=== PATIENT | female | born 1980 | race Caucasian/White ===

== ENCOUNTER 2025-02-07 07:17 | Day surgery (SDC) | payer OTHER, SELFPAY ==
--- NOTE | 2025-01-30 16:49 | HP.PCM_ITS ---
History and Physical Date of Admission: 02/07/25 HPI: The patient is a 44 year old female presenting for pre-operative visit. She is scheduled for laparoscopic-assisted vaginal hysterectomy with bilateral salpingectomy and possible cystoscopy, for adenomyosis, menorrhagia, intramural uterine fibroid, iron deficiency anemia due to chronic blood loss, on February 07, 2025. Procedure discussed along with risks, benefits and complications. Other alternatives discussed for management. Consent form signed? Yes. ? ? PAST MEDICAL HISTORY PAST MEDICAL HISTORYDiagnosisDate?Ovarian cyst09/09?Not sure..see ct scan ?Uterine [id number]?See ct scan results ? ? PAST SURGICAL HISTORY PAST SURGICAL HISTORYProcedureLateralityDate?D&C, DIAG AND/OR THERAPEUTIC?2004?ESSURE?2009?FOOT SURGERY [id number] ? ? ? CURRENT MEDICATIONS Current Outpatient MedicationsMedicationSigDispenseRefill?ibuprofen (MOTRIN) 600 mg tabletTake 1 tablet by mouth every 6 hours as needed for pain. FOR PAIN.60 tablet1?ferrous sulfate (IRON ORAL)Take by mouth.???No current facility- administered medications for this visit. ? ? ALLERGIES: Hydrocodone-Acetaminophen ? PERSONAL HISTORY: SOCIAL HISTORY Social History?Tobacco Use?Smoking status:Former??Types:Cigarettes?Smokeless tobacco:NeverVaping Use?Vaping status:Never UsedSubstance Use Topics?Alcohol use:Never?Drug use:Never ? FAMILY HISTORY: FAMILY HISTORY FAMILY HISTORY ProblemRelationAge of Onset?CancerMaternal Aunt?? possible kidney cancer ? ? REVIEW OF SYMPTOMS: GENERAL: denies fevers or chills ENDOCRINOLOGY: has not been on steroids Cardiology : denies palpitations or chest pain Respiratory: denies SOB or cough Hematology: denies history of prolonged bleeding or easy bruising or VTE Allergy: Denies history of personal or family history of allergy to anesthesia ? PHYSICAL EXAMINATION: ? VITALS: Blood pressure 118/80, pulse 60, resp. rate 20, height 167.6 cm (5' 6), weight 78.3 kg (172 lb 9.6 oz), last menstrual period 12/16/2024. ? GENERAL: The patient is well nourished, well hydrated in no acute distress. , The patient is oriented to time, place, and person. NECK: Supple. No lynphadenopathy, normal thyroid, no thyromegaly. LUNGS: Clear to auscultation bilaterally. no wheezes, rhonchi or rales HEART: Regular rate and rhythm, Normal heart sounds, and No murmurs or gallops ? Pelvic US 11/16/24: Uterus: -Size: 10.1 x 5.9 x 8.1 cm -Orientation: Anteverted -Endometrial echo complex: Evaluation of the endometrium was adequate. No endometrial abnormality. The endometrial echo complex measured 1.1 cm. -Cervix: Unremarkable. -Adenomyosis assessment: Globular uterine shape, ?heterogeneous parenchymal echogenicity, endometrial-myometrial interface is indistinct, -Fibroids: Right anterior intramural fibroid of 2.4 cm Right Ovary: 2.9 x 1.5 x 1.5 cm Normal appearance Left Ovary: 2.7 x 1.6 x 1.8 cm Normal appearance ? IMPRESSION: AUB/Menorrhagia, intramural uterine fibroid, adenomyosis, fe def anemia of chronic blood loss ? PLAN: The risks/benefits/alternatives and personal involved for the planned LAVH, bilateral salpingectomy, possible cystoscopy were reviewed with the patient. Her questions were answered to her satisfaction and she desires to proceed. Consent was signed. I reviewed with her postop instructions and expectations. ? ? I have reviewed and updated past medical and surgical history, medications and allergies Assessment & Plan Assessment/Plan (1) Intramural uterine fibroid: (2) Menorrhagia: (3) Adenomyosis: (4) Iron deficiency anemia due to chronic blood loss:
[2025-02-07] VITALS (10 sets, daily range): BP systolic 94–119; BP diastolic 60–87; PULSE 60–84; RESP 14–16; TEMP 36.1–37.3; O2SAT 95–100; BMI 27.5
[2025-02-07 08:15] LABS: Internal QC Validated? YES +Cl - CLEAR BKGD; Pregnancy, Urine Negative Negative
[2025-02-07] MEDS: Enoxaparin 40 MG/0.4 ML Syringe SC (08:40)
[2025-02-07] MEDS: Celecoxib 200 MG Capsule 400 MG PO (08:41)
[2025-02-07] MEDS: Phenazopyridine 95 MG Tablet 190 MG PO (08:41)
[2025-02-07] MEDS: Acetaminophen 500 MG Tablet 1000 MG PO (08:41)
[2025-02-07 08:42] LABS: Hematocrit 35.4 % (37-47); Mean Corp Hgb Conc 33.9 g/dL (32-36); Mean Corpuscular Hgb 29.3 pg (27.0-32.0); Mean Corpuscular Volume 86.6 fL (81-99); Platelet Count 269 K/mm3 (150-450); RBC Distribution Width CV 13.2 % (11.6-14.6); RBC Distribution Width SD 41.6 fl (35.1-43.9); Red Blood Count 4.09 M/mm3 (4.2-5.4)
[2025-02-07] MEDS: Scopolamine 1mg/72hr Patch 1 PATCH TD (08:42)
[2025-02-07] MEDS: Gabapentin 600 MG Tablet PO (08:42)
[2025-02-07] MEDS: Lactated Ringers @ 40 MLS/HR 40 ML IV (08:42)
[2025-02-07 09:12] LABS: Bedside Glucose 94 mg/dL (74-106)
--- NOTE | 2025-02-07 09:13 | PRE.ANES_ITS ---
ASA Classification* ASA Classification ASA Classification: 2 Assessment & Plan Anesthesia* Anesthesia Assessment Anesthesia Assessment: Discussed sedation and/or anesthesia options, risks, benefits, and alternatives with patient/parents/legal guardian/POA. Questions invited. The patient/parents/legal guardian/POA seems to understand and agrees to proceed with anesthesia plan. Reviewed the physical assessment, medical history, allergy history and patient home medications list prior to surgery/procedure/anesthetic and documented any changes. Performed airway and anesthesia risk assessments. Anesthesia Type Anesthesia Type: General History Source History Obtained from:: Patient and Chart Anesthesia Focused Assessment* Temperature: 99.2 F Pulse Rate: 81 Blood Pressure: 119/87 Respiratory Rate: 16 Pulse Ox: 99 Oxygen Delivery Method: Room Air Airway Assessment Mouth opens: 2 cm Mallampati Score: II Teeth Condition: Intact Focused Labs Anesthesia Preop lab: CBC WBC 6.0 K/mm3 (4.4-11.0) 02/07/25 08:25 02/07/25 RBC 4.09 M/mm3 (4.2-5.4) L 02/07/25 08:25 02/07/25 Hgb 12.0 g/dL (12.0-15.0) 02/07/25 08:25 02/07/25 Hct 35.4 % (37-47) L 02/07/25 08:25 02/07/25 Plt Count 269 K/mm3 (150-450) 02/07/25 08:25 02/07/25 CHEMISTRY Magnesium Pending 02/07/25 08:25 02/07/25 POC Glucose 94 mg/dL (74-106) 02/07/25 08:35 02/07/25 COAG Urine Test Negative Negative 02/07/25 08:00 02/07/25 Pre-Assessment Diagnosis/Proposed Procedure Planned Operative Procedure(s): ERAS, Hysterectomy,LAVH, bilateral salpingectomy, possible cystoscopy Anesthesia History Anesthesia History - sr. strategic sourcing manager: Anesthesia History - sr. strategic sourcing manager Hx Hospitalization No 01/31/25 09:27 Any Problems With Anesthesia No 01/31/25 09:27 Cholinesterase deficiency No 01/31/25 09:27 You/Your Family Experience No 01/31/25 09:27 fever (hyperthermia) with Relationship Recent Exposure to Contagious No 02/07/25 08:25 Disease Does patient have nerve No 01/31/25 09:27 stimulator Patient instructed to have device shut off --Does patient have Pacemaker No 02/07/25 08:25 or ICD? When Was Last Pacemaker Check QUESTION #4 FULL TEXT: You/Your Family Experience fever (hyperthermia) with Anesthesia Any additional information?: No Last Oral Intake Last Oral intake: Last Oral Intake NPO since 06:00 02/07/25 08:25 Meds taken in AM with sips of Yes 02/07/25 08:25 water? Meds patient instructed to take am of surgery Any additional information?: No PONV PONV - sr. strategic sourcing manager: PONV - sr. strategic sourcing manager Female Yes 01/31/25 09:27 HX of Motion Sickness Yes 01/31/25 09:27 HX of N/V After Surgery No 01/31/25 09:27 Non-Smoker Yes 01/31/25 09:27 Duration of Surgery greater Yes 01/31/25 09:27 than 60 minutes Number of Risk Factors 4 01/31/25 09:27 PONV Score Severe Risk 01/31/25 09:27 Any additional information?: No Height & Weight Height & Weight: Anesthesia: Height & Weight Height 5 ft 6 in 02/07/25 08:25 Weight: 77.4 kg 02/07/25 08:25 Body Mass Index (BMI) 27.5 02/07/25 08:25 Respiratory Assessment Respiratory Assessment - sr. strategic sourcing manager: Respiratory Tract Infection Hx - sr. strategic sourcing manager Hx Respiratory Tract Infection No 01/31/25 09:27 Any additional information?: No STOP Sleep Apnea STOP Sleep Apnea - sr. strategic sourcing manager: STOP Sleep Apnea - sr. strategic sourcing manager Hx Hypertension No 01/31/25 09:27 Hx Sleep Apnea No 01/31/25 09:27 CPAP BIPAP Do you snore loudly (louder Yes 01/31/25 09:27 than talking or can be heard Do you often feel tired/ Yes 01/31/25 09:27 fatigued/ sleepy during daytime? Has anyone observed you stop Yes 01/31/25 09:27 breathing during sleep? STOP Results Positive 01/31/25 09:27 QUESTION #5 FULL TEXT : Do you snore loudly (louder than talking or can be heard through closed doors)? Any additional information?: No Tobacco Use History Tobacco Use History - sr. strategic sourcing manager: Tobacco Use History - sr. strategic sourcing manager Tobacco Use Smoking Status Light Smoker (<10/day) 01/31/25 09:27 Hx Tobacco Use No 01/31/25 09:27 Years Smoking 20 01/31/25 09:27 Packs Smoked per Day Smoking Cessation Date was Yes - quit smoking within 15 01/31/25 09:27 within the last 15 years years Hx Smoking Cessation Date Hx Smoking Cessation Yes: 10-01/31/25 09:27 Counseling Any additional information?: No Hematologic Medial History Hematologic Hx - sr. strategic sourcing manager: Hematologic Medical Hx - solar energy advisor Hx of Blood Transfusion No 01/31/25 09:27 Hx of Transfusion in last 3 No 01/31/25 09:27 Months Date of Last Transfusion (if within last 3 months) Ever experience any problems No 01/31/25 09:27 with transfusion(s)? Specify any problems Hx of Preganancy in last 3 No 01/31/25 09:27 Months Nurse Filling Out Transfusion JZOLLINGE 01/31/25 09:27 & Questions: Date: 01/31/25 01/31/25 09:27 Time: 09:33 01/31/25 09:27 Patient unable to answer at this time (ie. confused, unrespo Any additional information?: No /Reproduction History /Reproductive History - sr. strategic sourcing manager: /Reproductive Hx- sr. strategic sourcing manager Hx Now No 01/31/25 09:27 Gestational Age (in weeks): EDC: Hx Hx Para Hx Section SAB No 01/31/25 09:27 Any additional information?: No Active Medications Active Medications: Current Medications Generic Name Dose Route Start Last Admin Trade Name Freq PRN Reason Stop Dose Admin Acetaminophen 1,000 mg 02/07/25 10:00 02/07/25 08:41 Acetaminophen 500 Mg Tablet PO 02/07/25 10:01 1,000 mg PREOP ONE Administration Celecoxib 400 mg 02/07/25 10:00 02/07/25 08:41 Celecoxib 200 Mg Capsule PO 02/07/25 10:01 400 mg PREOP ONE Administration Dexamethasone Sodium Phosphate 8 mg 02/07/25 10:00 Dexamethasone 4 Mg/Ml Vial IV 02/07/25 10:01 INTRAOP ONE Enoxaparin Sodium 40 mg 02/07/25 10:00 02/07/25 08:40 Enoxaparin 40 Mg/0.4 Ml Syringe SC 02/07/25 10:01 40 mg PREOP ONE Administration Gabapentin 600 mg 02/07/25 10:00 02/07/25 08:42 Gabapentin 600 Mg Tablet PO 02/07/25 10:01 600 mg PREOP ONE Administration Cefazolin Sodium 2 gm/ N/A 20 mls @ 400 mls/hr 02/07/25 10:00 IV 02/07/25 10:02 INTRAOP ONE Lactated Ringer's 1,000 mls @ 40 mls/hr 02/07/25 10:00 02/07/25 08:42 IV 40 mls/hr .Q25H KEL Administration Insulin Human Lispro 0 unit 02/07/25 10:00 Insulin Lispro 100 Unit/Ml Insuln.Pen SC Q4H PRN PRN BG >/= 180, SEE PROTOCOL Protocol Ondansetron HCl 4 mg 02/07/25 10:00 Ondansetron 4 Mg/2 Ml Vial IV 02/07/25 10:01 INTRAOP ONE Phenazopyridine HCl 190 mg 02/07/25 10:00 02/07/25 08:41 Phenazopyridine 95 Mg Tablet PO 02/07/25 10:01 190 mg PREOP ONE Administration Scopolamine HBr 1 patch 02/07/25 10:00 02/07/25 08:42 Scopolamine 1mg/72hr Patch TD 02/07/25 10:01 1 patch PREOP ONE Administration PFSH Medical History History of DVT of lower extremity Wears glasses Low iron Gastric reflux Heartburn Former smoker Home Medications ?Medication ?Instructions ?Recorded ?Last Taken ?Type MIRLAX PRN constipation 01/31/25 Un known History ferrous sulfate 325 mg (65 mg 325 mg PO QODAY 01/31/25 Unknown History iron) tablet Allergy/AdvReac Type Severity Reaction Status Date / Time hydrocodone (From Vicodin) AdvReac Intermediate Itching Verified 02/07/25 08:24 Surgical History Hx of foot surgery Hx of colonoscopy Social History Smoking Status: Light Smoker (<10/day) Review of Systems (Anesthesia) ROS Narrative System reviewed and no additional complaints, except as documented. Physical Exam Const alert and oriented x3 Orientation / Consciousness: awake HEENT dentition normal Neck full ROM General: normal visual inspection Resp normal respiratory effort Auscultation: clear to auscultation bilaterally Cardio regular rate, regular rhythm and no murmurs Neuro oriented x3
[2025-02-07] MEDS: Magnesium 1 GM over 15 mins IV (09:52)
--- NOTE | 2025-02-07 10:00 | UT_PTH ---
PATIENT: DAWN FITZGERALD [place] [facility] [id number] AGE/SX: 44/F ROOM: RE02/07/[address]: Dr. Elvia Mckenna MD : 1980 BED: DIS: 02/07/2025 SPEC #: [id number] RECD: 02/08/25 09:37 STATUS: CE REJaved #: [id number] LISSETT: 02/07/25 10:[address]: Elvia Mckenna DEPT: SURGICAL PATHOLOGY RECD BY: Ian Pino ENTERED: 02/08/25 09:37 SP TYPE: UTERUS OTHR DR: Dr. Williams Giraldo MD Tissues: A - Uterus, NOS Procedures: Surgery Specimen Level V HEADER OPERATION: ERAS, hysterectomy, LAVH, bilateral salpingectomy PRE-OP DIAGNOSIS: Intramural uterine fibroid, menorrhagia, adenomyosis, iron deficiency anemia due to chronic blood loss TISSUE SUBMITTED: A- Cervix, uterus with bilateral fallopian tubes MICROSCOPIC DIAGNOSIS A. Uterus, cervix, bilateral fallopian tubes, hysterectomy, bilateral salpingectomy: Cervix: Benign squamous epithelium and endocervical glandular tissue Endometrium: Secretory endometrium Myometrium: Superficial and deep adenomyosis, leiomyoma Bilateral fallopian tubes: Benign fallopian tubes with plical fibrosis and benign paratubal cysts MICROSCOPIC DESCRIPTION Slides are reviewed. GROSS DESCRIPTION A. Received in formalin in a container labeled with the patient's name, date of , and cervix, uterus, bilateral fallopian tubes is a hysterectomy specimen with attached cervix and detached fallopian tubes. The uterus is 206 g and 10.5 cm from fundus to ectocervix, 7 cm from cornu to cornu, and 5.5 cm from anterior to posterior. The serosa is kim-pink, smooth, and glistening. The white-pink ectocervix is 3.3 x 2.5 cm with a 1.5 cm slitlike os. The specimen is bivalved to reveal a 4.5 x 1.0 cm endocervical canal. The triangular and ill-defined endometrial cavity is 4.5 cm in length by 4.0 cm in width. The endometrium is kim, velvety, and up to 0.5 cm in thickness. The junction between mucosa and myometrium is ill-defined. The myometrium is diffusely nodular and coarsely trabecular with a thickness up to 2.7 cm. A single intramural, white, and whorled myometrial nodule is identified in the anterior myometrium measuring 1.0 x 0.8 x 0.7 cm. No hemorrhage or necrosis is identified. The bilateral fimbriated fallopian tubes are received with no orientation. Each measure 4.5 cm in length by 0.7 cm in diameter with kim-pink serosa and feathery fimbriated ends. Each displays a 0.8 cm paratubal cyst. Sectioning of each reveals a pinpoint lumen. House Calls Nurse Practitioner sections:A1. Anterior cervix with serosal shaveA2. Posterior cervix with serosal shaveA3. Anterior full-thickness section with myometrial nodule and trabecular myometriumA4. Remainder of myometrial nodule with anterior superficial endomyometriumA5. Posterior superficial endomyometrium x 2A6-7. Fallopian tubes [facility] 02-08-2025 CPT:38048
[2025-02-07] MEDS: Cefazolin 2 GM in Syringe 10 ML IV (10:35)
--- NOTE | 2025-02-07 10:36 | DCINST_ITS ---
Discharge Instructions Diet Discharge Diet: Light diet - advance as tolerated DC O2, CPAP, BIPAP needs Home O2 Discharge instructions: No Dressing / Incision Discharge Activity: May Drive (in 3-5 days and when you are no longer on narcotic pain medication) and May Take a Tub Bath (in 6 weeks) May shower in (days): 1 May resume sexual activity in: 6-8 weeks and - (Nothing in your vagina for 6 weeks. No vaginal or anal intercourse for 6-8 weeks) Lifting Restrictions: 15 lbs x 6 weeks Dressing / Incision Call your doctor if your incision/area has: Continuous Slow Oozing, Sudden Increased Bleeding, Increased Redness and Foul Smelling Discharge Call your doctor if you observe: Fever of 101 or Higher and Using more than 1 pad per hour Cleanse incision/area with: Soap & Water and - (Your incisions have skin glue, it can get wet, leave the glue on until it falls off. ) Follow Up Care Please Follow Up With: Elvia Mckenna MD When: With my office in 1-2 and 6 weeks or as needed. [phone] call or send a [employer] message as needed Test Results: Test results from this visit will be discussed in further detail at your follow- up appointment, if applicable. Discharge Plan Admission Attending Provider: Elvia Mckenna Primary Care Provider: Williams Giraldo Instructions Print Language: Croatian Discharge Orders/Prescriptions Prescriptions: No Action ferrous sulfate 325 mg (65 mg iron) tablet 325 mg PO QODAY MIRLAX PRN (Reason: constipation) Referrals / Follow Up: Williams Giraldo MD [Primary Care Provider] - Disposition Disposition (needs filled in before D/C Order can be placed): Home, Self Care
[2025-02-07] MEDS: Bupivacaine Mpf 0.5% 30 ML VIAL (10:47)
[2025-02-07] MEDS: Lidocaine 1%/Epi 1:200 (30ml) 30 ML AMPUL (12:24)
--- NOTE | 2025-02-07 12:32 | OP.PCM_ITS ---
Problems Associated Problem List Diagnoses (1) Iron deficiency anemia due to chronic blood loss: (2) Adenomyosis: (3) Menorrhagia: (4) Intramural uterine fibroid: Operative Report (Standard) Operative Information Date of Procedure: 02/07/25 Pre-Operative Diagnosis: FE DEF ANEMIA OF CHRONIC BLOOD LOSS, UTERINE FIBROID, ABNORMAL UTERINE BLEEDING, ADENOMYOSIS Post-Operative Diagnosis: SAME Surgery/Procedure Performed: LAVH with bilateral salpingectomy and cystoscopy supervisor fish bait processing: Yes Tufter Operator: Meg Ramirez Tasks completed by media assistant: Insert Trochanter, Hemostasis: Clamp, Hemostasis: Electrocautery, Trocar and Retracting Additional esl instructional assistant?: No Type of Anesthesia: General RN Documented Start/Stop Times: Operation Date: 02/07/25 10:00 Case Time Into Pre-Op 02/07/25 07:53 Anesthesia Start 02/07/25 10:21 Into Room 02/07/25 10:21 Out of Pre-Op 02/07/25 10:21 Procedure Start 02/07/25 10:46 Procedure End 02/07/25 12:29 Procedure Start Time: 10:46 Procedure Stop Time: 12:29 Select all DRAINS/GRAFTS/IMPLANTS that apply: None Special Medications: none Estimated Blood Loss: 50 Fluids Replaced: 1900 cc LR Specimen collected: Yes Description of specimen(s) removed: uterus, cervix, bilateral fallopian tubes Description of surgery: The patient was taken to the operating room where she was prepped and draped in the dorsal lithotomy position. Her arms were tucked to the side and padded and her legs were placed in the yellowfin stirrups. Care was taken to ensure that she was placed in a neurologically safe and neutral position. A weighted speculum was placed in the vagina and the anterior lip of the cervix was grasped with a single-tooth tenaculum. The uterus sounded to 10 centimeters. The Randi uterine manipulator was placed and secured. The Lawrence catheter was placed to straight drain. Attention was turned to the abdominal portion of the case. Before skin incisions were made they were infiltrated with 0.5% Marcaine solution for local anesthetic. A 5 mm intraumbilical incision was made and while tenting the anterior abdominal wall up with towel clamps a 5 mm blade less trocar and sleeve were advanced directly into the peritoneal cavity. Peritoneal placement was confirmed with the laparoscope the pneumoperitoneum was created, and the underlying abdominal contents were intact. The patient was placed in Trendelenburg and the above findings were noted. Right and left lateral 5 mm trochars were placed under direct visualization without difficulty. The antimesenteric portion of the tube was clamped sealed and transected serially on both sides with the LigaSure device. The round ligaments were clamped sealed and transected and a window was made in the peritoneum. The utero-ovarian ligaments were then clamped, sealed and transected with the LigaSure device and the pedicles were hemostatic The bladder flap was dissected down with the LigaSure device and blunt dissection and the uterine arteries were then skeletonized. The uterine arteries were clamped, sealed and transected on both sides with the LigaSure device. At this point the pedicles were all examined and found to be hemostatic. Attention was turned to the vaginal portion of the case. 1% lidocaine with dilute epinephrine solution was used to i infiltrate the vaginal epithelium around the cervix. A circumferential incision was made with a scalpel around the cervix. The posterior peritoneum was entered sharply with the Golden scissors. A weighted speculum was placed in the posterior cul-de-sac. The anterior cul-de-sac was entered with blunt and sharp dissection. Nazario clamp was used to clamp the uterosacral ligaments. They were then transected and suture-ligated. The cardinal ligaments were serially clamped, transected and suture-ligated and excellent hemostasis was noted. The uterus was then freed and brought out through the colpotomy incision. The pedicles were examined there was small amount of oozing around the right vaginal angle and a [id number] 0 Vicryl suture was needed there. The left uterosacral was oozing and an 0 Vicryl vgewni-yi-vugyy suture was placed there. The posterior peritoneum was then run with a 2-0 Vicryl running locked suture. A modified Owens suture was placed with 2-0 PDS. The suture was placed through the posterior vaginal cuff in the midline and skimmed across the posterior peritoneum to the right uterosacral ligament back across the peritoneum to the left uterosacral ligament back across the peritoneum to the midline and brought out through the vagina. The vaginal cuff was then closed in a horizontal fashion with interrupted 0 Vicryl qjfvzr-[id number] sutures. Care was taken to secure the vagina to the uterosacral ligaments. The Owens's PDS suture was then tied down The Lawrence catheter was removed and a cystoscopy was performed. The bladder appeared normal and was intact. Both ureteral orifices were noted and both ureteral jets were seen. The cystoscope was removed and the Lawrence catheter was placed back to straight drain. A sponge stick was placed in the vagina to help place traction against the vaginal cuff. The laparoscope was reinserted into the abdomen and the pneumoperitoneum was re- created. The pedicles were reexamined and found to be hemostatic. The vaginal cuff was hemostatic. Surgicel powder was placed just over the vaginal cuff. The right and left lateral ports were taken out and the sites were hemostatic. The pneumoperitoneum was released and even under low pressure there was no bleeding of any of the pedicles are vaginal cuff. The umbilical port was removed. The umbilical skin incisions were closed with Monocryl suture and skin glue. The vaginal instruments were removed by me and a vaginal sweep was completed by me. I performed a rectal exam and no sutures or abnormalities were palpable. The surgery was performed by me with assistance other than the portions dictated as above. There were no qualified residents available for this procedure. All sponge lap and needle counts were correct and the patient was transferred to the recovery room in stable condition. Surgical Findings: enlarged boggy uterus, normal tubs and ovaries. Normal cervix and vagina Complications Complications: No Admit VTE Documentation VTE Present on Admission: No VTE Mechan Device Prophylaxis: [facility] [place] Prophylaxis ordered?: Yes
--- NOTE | 2025-02-07 12:41 | PCM.POST.ANE ---
Anesthesia: Postop Eval I Current Vital Signs Temperature: 97 F Pulse Rate: 79 Blood Pressure: 102/60 Respiratory Rate: 16 Pulse Ox: 95 Oxygen Delivery Method: Room Air Assessment Airway patent: Yes Spontaneous unlabored respirations: Yes Mental status: Awake and Calm nausea: No Vomiting: No Anesthesia Complication: No Fluid Hydration Crystalloid volume administer (ml): 1,900 Total IV fluid infused: 1,900 Progress Note Anesthesia document: Postop Eval 1 completed: Yes
[2025-02-07] MEDS: Lactated Ringers 1,000 ML 75 ML IV (12:54)
--- NOTE | 2025-02-07 14:23 | POSTOPAN2_ITS ---
Anesthesia Postop Eval I Sum Postop Eval Completion status Anesthesia document: Postop Eval 1 completed: Yes Anesthesia Postop Eval I Summary Anesthesia Postop Eval I Summary: Anesthesia Postop Eval I: Assessment Summary Airway patent Yes 02/07/25 12:41 [email or web address] Spontaneous unlabored Yes 02/07/25 12:41 [email or web address] respirations Mental status Awake,Calm 02/07/25 12:41 [email or web address] nausea No 02/07/25 12:41 [email or web address] [email or web address] Vomiting No 02/07/25 12:41 BASEBALL [email or web address] Anesthesia Postop Eval I: Fluid Summary Crystalloid volume administer 1,900 02/07/25 12:41 BASEBALL [email or web address] (ml) Colloids volume administered ( ml) Blood Product volume administered (ml) Total IV fluid infused 1,900 02/07/25 12:41 BASEBALL [email or web address] Anesthesia Postop Eval I: Summary Notes Anesthesia Complication No 02/07/25 12:41 BASEBALL [email or web address] Anesthesia Complication Comment: Post-operative progress note Anesthesia: Postop Eval II Evaluation Mental status: Awake and Calm Pain Level: 0 nausea: No Vomiting: No Complications Anesthesia Complication: No
--- NOTE | 2025-02-07 14:23 | PCM.POSTANE2 ---
Anesthesia Postop Eval I Sum Postop Eval Completion status Anesthesia document: Postop Eval 1 completed: Yes Anesthesia Postop Eval I Summary Anesthesia Postop Eval I Summary: Anesthesia Postop Eval I: Assessment Summary Airway patent Yes 02/07/25 12:41 [email or web address] Spontaneous unlabored Yes 02/07/25 12:41 [email or web address] [email or web address] respirations Mental status Awake,Calm 02/07/25 12:41 [email or web address] [email or web address] nausea No 02/07/25 12:41 [email or web address] [email or web address] Vomiting No 02/07/25 12:41 [email or web address] Anesthesia Postop Eval I: Fluid Summary Crystalloid volume administer 1,900 02/07/25 12:41 [email or web address] (ml) Colloids volume administered ( ml) Blood Product volume administered (ml) Total IV fluid infused 1,900 02/07/25 12:41 [email or web address] Anesthesia Postop Eval I: Summary Notes Anesthesia Complication No 02/07/25 12:41 [email or web address] Anesthesia Complication Comment: Post-operative progress note Anesthesia: Postop Eval II Evaluation Mental status: Awake and Calm Pain Level: 0 nausea: No Vomiting: No Complications Anesthesia Complication: No
== END 2025-02-07 14:34 | disposition home or self-care (01) ==
LOC: SDC 07:20 → AC 07:21
PROVIDERS: Anesthesiology; PCP Family Medicine; Referring Provider Obstetrics & Gynecology; Visit Provider Obstetrics & Gynecology
PROC: 0UT9FZZ Resection of Uterus, Via Natural or Artificial Opening With Percutaneous Endoscopic Assistance (ICD-10-PCS; CPT 58552; principal; 2025-02-07 09:35)
DX: D25.1 Intramural leiomyoma of uterus (principal); N80.03 Adenomyosis of the uterus; N83.8 Other noninflammatory disorders of ovary, fallopian tube and broad ligament; D50.0 Iron deficiency anemia secondary to blood loss (chronic); N93.9 Abnormal uterine and vaginal bleeding, unspecified; N92.0 Excessive and frequent menstruation with regular cycle; Z86.718 Personal history of other venous thrombosis and embolism; K21.9 Gastro-esophageal reflux disease without esophagitis; Z87.891 Personal history of nicotine dependence
CPT/HCPCS: 58552; 81025; 82962; 83735; 85027; 86850; 86900; 86901; 88307; J1940; J2405; J3475